=== PATIENT | male | born 1940 | race Two or more races ===

== ENCOUNTER 2018-10-11 10:08 | Inpatient (IN) | payer MEDICARE ==
[2018-10-11] VITALS (28 sets, daily range): BP systolic 96–137; BP diastolic 50–110
[~2018-10-11] VITALS: Ht 172.7 cm; Wt 99.8 kg
[2018-10-11] MEDS ORDERED: SODIUM CHLORIDE 0.9% 1,000 ML IV ONE (10:33)
[2018-10-11] MEDS ORDERED: ONDANSETRON HCL 4MG/2ML INJ IV STA (10:33)
[2018-10-11] MEDS ORDERED: DILTIAZEM HCL 5MG/ML 5ML VIAL IV ONE (11:15)
[2018-10-11] MEDS ORDERED: CALCIUM GLUCONATE 1,000 MG in DEXTROSE 5% WATER 50 ML IV ONE (11:15)
[2018-10-11 14:12] LABS: CHLORIDE 115 mEq/L (98-107)
[2018-10-11] MEDS ORDERED: DILTIAZEM HCL 5MG/ML 5ML VIAL IV PRN (14:15)
[2018-10-11] MEDS ORDERED: POTASSIUM CHLORIDE 20MEQ TABLET SR PO ONE (14:30)
[2018-10-11] MEDS ORDERED: KCL 20MEQ/100ML PREMIX 100 ML IV ONE (14:30)
[2018-10-11] MEDS ORDERED: MAGNESIUM 2 G PREMIX 50 ML IV ONE (14:30)
[2018-10-11] MEDS ORDERED: DIGOXIN 500MCG/2ML AMP IV ONE (14:30)
[2018-10-11 15:28] LABS: MEAN CORPUSCULAR HEMOGLOBIN 29.8 pg (28.0-32.0); MEAN CORPUSCULAR VOLUME 85.6 fL (80.0-94.0); MEAN PLATELET VOLUME 7.1 fl (7.4-10.4); PLATELET 405 x1000/uL (130-400); RED BLOOD CELL COUNT 2.68 mill/uL (4.7-6.1); RED CELL DISTRIBUTION WIDTH 14.4 % (11.6-14.6)
[2018-10-11 15:59] LABS: PLATELET ESTIMATE INCREASED
[2018-10-11] MEDS ORDERED: VISCOUS LIDOCAINE 2% 15 ML UDC MM PRN (16:30)
[2018-10-11] MEDS ORDERED: ONDANSETRON HCL 4MG/2ML INJ IV PRN (16:30)
[2018-10-11] MEDS: SODIUM CHLORIDE 0.9% 1,000 ML IV SCH ×2 (16:45→23:15)
[2018-10-11 17:34] LABS: PROTHROMBIN TIME > 100.0 sec (9.1-11.1)
[2018-10-11 17:39] LABS: INR > 10.0; PARTIAL THROMBOPLASTIN TIME > 200.0 sec (23.4-31.0)
[2018-10-11] MEDS: DILTIAZEM HCL 30MG TABLET PO SCH (21:38)
[2018-10-11] MEDS ORDERED: MAGNESIUM 1 G PREMIX 100 ML IV NR (23:00)
[2018-10-12] VITALS (38 sets, daily range): BP systolic 88–159; BP diastolic 41–107
[2018-10-12] MEDS: MORPHINE SULFATE 4 MG/ML CPJ (NOT FOR IM USE) IV PRN ×5 (02:50→23:20)
[2018-10-12] MEDS: SODIUM CHLORIDE 0.9% 1,000 ML IV SCH ×4 (05:50→19:10)
[2018-10-12 05:56] LABS: HEMOGLOBIN. 7.1 g/dL (14.0-18.0); MEAN CORPUSCULAR VOLUME 85.6 fL (80.0-94.0); PLATELET 287 x1000/uL (130-400); RED BLOOD CELL COUNT 2.35 mill/uL (4.7-6.1); RED CELL DISTRIBUTION WIDTH 14.1 % (11.6-14.6)
[2018-10-12 06:01] LABS: INR 3.5; PROTHROMBIN TIME 34.3 sec (9.1-11.1)
[2018-10-12 06:17] LABS: HEMATOCRIT. 20.2 % (42.0-52.0)
[2018-10-12] MEDS: DILTIAZEM HCL 30MG TABLET PO SCH ×3 (06:39→21:50)
[2018-10-12 08:19] LABS: PLATELET ESTIMATE NORMAL
[2018-10-12] MEDS ORDERED: POTASSIUM CHLORIDE INJ 40 MEQ in DEXT 5% WATER 250 ML IV SCH (08:30)
[2018-10-12] MEDS: PANTOPRAZOLE SODIUM 40 MG/VIAL IV SCH (08:45)
[2018-10-12] MEDS: HYDROCODONE/ACETAMINOPHEN 5/325MG TABLET PO PRN ×3 (10:13→21:02)
[2018-10-12] MEDS ORDERED: VANCOMYCIN 1500MG in DEXTROSE 5% WATER 250ML IV SCH (15:00)
[2018-10-13] VITALS (14 sets, daily range): BP systolic 100–131; BP diastolic 50–88
[2018-10-13] MEDS: SODIUM CHLORIDE 0.9% 1,000 ML IV SCH ×3 (01:50→20:15)
[2018-10-13] MEDS: DILTIAZEM HCL 30MG TABLET PO SCH ×3 (05:16→22:00)
[2018-10-13 05:53] LABS: PROTHROMBIN TIME 62.8 sec (9.1-11.1)
[2018-10-13 06:10] LABS: HEMATOCRIT. 21.7 % (42.0-52.0); HEMOGLOBIN. 7.5 g/dL (14.0-18.0); MEAN CORPUSCULAR HEMOGLOBIN 29.5 pg (28.0-32.0); MEAN CORPUSCULAR VOLUME 85.5 fL (80.0-94.0); MEAN PLATELET VOLUME 6.8 fl (7.4-10.4); PLATELET 274 x1000/uL (130-400); RED BLOOD CELL COUNT 2.54 mill/uL (4.7-6.1)
[2018-10-13 06:30] LABS: INR 6.5
[2018-10-13 06:45] LABS: CHLORIDE 98 mEq/L (98-107)
[2018-10-13] MEDS: PANTOPRAZOLE SODIUM 40 MG/VIAL IV SCH (08:33)
[2018-10-13] MEDS ORDERED: VANCOMYCIN 1250MG in DEXTROSE 5% WATER 250ML IV SCH (09:00)
[2018-10-13] MEDS: MORPHINE SULFATE 4 MG/ML CPJ (NOT FOR IM USE) IV PRN ×2 (09:21→20:06)
[2018-10-13 09:25] LABS: NUCLEATED RED BLOOD CELLS 1 /100 WBC
[2018-10-13 09:26] LABS: PLATELET ESTIMATE NORMAL
[2018-10-13] MEDS ORDERED: POTASSIUM CHLORIDE 20MEQ TABLET SR PO SCH (11:00)
[2018-10-13] MEDS: VANCOMYCIN 1500MG in DEXTROSE 5% WATER 250ML IV SCH (11:18)
[2018-10-13] MEDS ORDERED: MAGNESIUM 2 G PREMIX 50 ML IV SCH (12:00)
[2018-10-13 12:49] LABS: PROTHROMBIN TIME 73.5 sec (9.1-11.1)
[2018-10-13 12:59] LABS: INR 7.6
[2018-10-13] MEDS ORDERED: PHYTONADIONE 10MG/ML AMP SUBCUT NR (14:15)
[2018-10-13] MEDS ORDERED: LIDOCAINE HCL 20 MG/ML 100ML BOTTLE MM PRN (18:30)
[2018-10-13] MEDS: HYDROCODONE/ACETAMINOPHEN 5/325MG TABLET PO PRN (21:09)
[2018-10-14] VITALS (21 sets, daily range): BP systolic 85–114; BP diastolic 35–74
[2018-10-14] MEDS: VANCOMYCIN 1500MG in DEXTROSE 5% WATER 250ML IV SCH ×2 (04:50→23:04)
[2018-10-14] MEDS: DILTIAZEM HCL 30MG TABLET PO SCH ×3 (06:00→21:04)
[2018-10-14 06:34] LABS: MEAN CORPUSCULAR HEMOGLOBIN 30.1 pg (28.0-32.0); MEAN CORPUSCULAR VOLUME 86.5 fL (80.0-94.0); MEAN PLATELET VOLUME 6.7 fl (7.4-10.4); PLATELET 233 x1000/uL (130-400); RED BLOOD CELL COUNT 1.95 mill/uL (4.7-6.1); RED CELL DISTRIBUTION WIDTH 14.1 % (11.6-14.6)
[2018-10-14 06:43] LABS: CHLORIDE 97 mEq/L (98-107)
[2018-10-14 07:01] LABS: INR 1.7; PARTIAL THROMBOPLASTIN TIME 42.7 sec (23.4-31.0); PROTHROMBIN TIME 16.8 sec (9.1-11.1)
[2018-10-14 07:26] LABS: HEMATOCRIT. 16.9 % (42.0-52.0); HEMOGLOBIN. 5.9 g/dL (14.0-18.0)
[2018-10-14] MEDS: PANTOPRAZOLE SODIUM 40 MG/VIAL IV SCH (08:32)
[2018-10-14] MEDS ORDERED: POTASSIUM CHLORIDE INJ 40 MEQ in DEXT 5% WATER 250 ML IV SCH (08:45)
[2018-10-14] MEDS ORDERED: MAGNESIUM SULFATE 1GM/2ML VIAL IV ONE (08:45)
[2018-10-14] MEDS: HYDROCODONE/ACETAMINOPHEN 5/325MG TABLET PO PRN (08:50)
[2018-10-14] MEDS ORDERED: MAGNESIUM 2 G PREMIX 50 ML IV ONE (10:00)
[2018-10-14 12:30] LABS: PLATELET ESTIMATE NORMAL
[2018-10-14] MEDS: SODIUM CHLORIDE 0.9% 1,000 ML IV SCH ×2 (12:54→19:52)
[2018-10-14 15:08] LABS: CHLORIDE 96 mEq/L (98-107)
[2018-10-15] VITALS (15 sets, daily range): BP systolic 91–125; BP diastolic 49–84
[2018-10-15] MEDS: DILTIAZEM HCL 30MG TABLET PO SCH ×3 (06:00→22:00)
[2018-10-15 06:35] LABS: INR 1.1; PROTHROMBIN TIME 11.2 sec (9.1-11.1)
[2018-10-15 08:01] LABS: HEMATOCRIT 21.5 % (42.0-52.0); HEMOGLOBIN 7.6 g/dL (14.0-18.0); MEAN CORPUSCULAR HEMOGLOBIN 30.2 pg (28.0-32.0); MEAN CORPUSCULAR VOLUME 85.9 fL (80.0-94.0); PLATELET 197 x1000/uL (130-400); RED BLOOD CELL COUNT 2.51 mill/uL (4.7-6.1); RED CELL DISTRIBUTION WIDTH 14.5 % (11.6-14.6)
[2018-10-15 08:06] LABS: CHLORIDE 95 mEq/L (98-107)
[2018-10-15] MEDS: PANTOPRAZOLE SODIUM 40 MG/VIAL IV SCH (08:48)
[2018-10-15] MEDS ORDERED: POTASSIUM CHLORIDE INJ 40 MEQ in DEXT 5% WATER 500 ML IV SCH (10:30)
[2018-10-15] MEDS: SODIUM CHLORIDE 0.9% 1,000 ML IV SCH (11:20)
[2018-10-15] MEDS: VANCOMYCIN 1500MG in DEXTROSE 5% WATER 250ML IV SCH (17:04)
[2018-10-16] VITALS (12 sets, daily range): BP systolic 91–112; BP diastolic 50–75
[2018-10-16] MEDS: DILTIAZEM HCL 30MG TABLET PO SCH ×3 (06:00→21:10)
[2018-10-16 06:57] LABS: INR 1.1; PARTIAL THROMBOPLASTIN TIME 29.4 sec (23.4-31.0); PROTHROMBIN TIME 10.8 sec (9.1-11.1)
[2018-10-16 07:00] LABS: CHLORIDE 94 mEq/L (98-107)
[2018-10-16 07:19] LABS: HEMATOCRIT. 22.3 % (42.0-52.0); HEMOGLOBIN. 7.8 g/dL (14.0-18.0); MEAN CORPUSCULAR HEMOGLOBIN 30.2 pg (28.0-32.0); MEAN PLATELET VOLUME 6.6 fl (7.4-10.4); PLATELET 226 x1000/uL (130-400); RED BLOOD CELL COUNT 2.59 mill/uL (4.7-6.1); RED CELL DISTRIBUTION WIDTH 13.8 % (11.6-14.6)
[2018-10-16] MEDS: PANTOPRAZOLE SODIUM 40 MG/VIAL IV SCH (09:00)
[2018-10-16] MEDS: POTASSIUM CHLORIDE 10MEQ TABLET SR PO SCH (09:01)
[2018-10-16] MEDS ORDERED: POTASSIUM CHLORIDE INJ 60 MEQ in DEXT 5% WATER 500 ML IV SCH (12:00)
[2018-10-16 12:04] LABS: PLATELET ESTIMATE NORMAL
[2018-10-16] MEDS: DEXT 5%/0.45% NACL KCL 20MEQ/L 1,000 ML IV SCH (12:19)
[2018-10-16] MEDS ORDERED: TEMAZEPAM 15MG CAPSULE PO PRN (21:00)
[2018-10-17] VITALS (12 sets, daily range): BP systolic 92–120; BP diastolic 48–88
[2018-10-17] MEDS: DEXT 5%/0.45% NACL KCL 20MEQ/L 1,000 ML IV SCH ×2 (01:33→14:10)
[2018-10-17 05:47] LABS: HEMATOCRIT. 22.7 % (42.0-52.0); HEMOGLOBIN. 7.8 g/dL (14.0-18.0); MEAN CORPUSCULAR HEMOGLOBIN 30.1 pg (28.0-32.0); MEAN CORPUSCULAR VOLUME 87.1 fL (80.0-94.0); MEAN PLATELET VOLUME 6.6 fl (7.4-10.4); PLATELET 227 x1000/uL (130-400)
[2018-10-17] MEDS: DILTIAZEM HCL 30MG TABLET PO SCH ×3 (06:00→22:00)
[2018-10-17 06:50] LABS: CHLORIDE 95 mEq/L (98-107)
[2018-10-17] MEDS: POTASSIUM CHLORIDE 10MEQ TABLET SR PO SCH (09:34)
[2018-10-17] MEDS: PANTOPRAZOLE SODIUM 40 MG/VIAL IV SCH (09:34)
[2018-10-17 11:45] LABS: PLATELET ESTIMATE NORMAL
[2018-10-17 13:58] LABS: INR 1.1; PARTIAL THROMBOPLASTIN TIME 28.2 sec (23.4-31.0); PROTHROMBIN TIME 11.1 sec (9.1-11.1)
[2018-10-17] MEDS ORDERED: SODIUM CHLORIDE 0.9% 10ML VIAL ONE (14:55)
[2018-10-17] MEDS ORDERED: FENTANYL CITRATE/PF 50MCG/ML 2ML VIAL ONE (16:39)
[2018-10-17] MEDS ORDERED: MIDAZOLAM HCL 5 MG/5 ML VIAL ONE (16:39)
[2018-10-17] MEDS ORDERED: CEFAZOLIN 1000MG PREMIX 50 ML IV ONE (16:39)
[2018-10-17] MEDS ORDERED: MIDAZOLAM HCL 5 MG/5 ML VIAL IV PRN (16:40)
[2018-10-17] MEDS: CEFAZOLIN 1000MG PREMIX 50 ML IV SCH ×2 (16:40→16:45)
[2018-10-18] VITALS (12 sets, daily range): BP systolic 91–107; BP diastolic 51–69
[2018-10-18] MEDS: DEXT 5%/0.45% NACL KCL 20MEQ/L 1,000 ML IV SCH ×2 (03:30→16:50)
[2018-10-18] MEDS: DILTIAZEM HCL 30MG TABLET PO SCH ×3 (06:00→21:49)
[2018-10-18 07:21] LABS: HEMATOCRIT. 23.7 % (42.0-52.0); HEMOGLOBIN. 8.2 g/dL (14.0-18.0); MEAN CORPUSCULAR HEMOGLOBIN 30.3 pg (28.0-32.0); MEAN CORPUSCULAR VOLUME 87.5 fL (80.0-94.0); MEAN PLATELET VOLUME 6.7 fl (7.4-10.4); PLATELET 248 x1000/uL (130-400); RED CELL DISTRIBUTION WIDTH 14.3 % (11.6-14.6)
[2018-10-18 07:37] LABS: CHLORIDE 97 mEq/L (98-107)
[2018-10-18 09:19] LABS: PLATELET ESTIMATE NORMAL
[2018-10-18] MEDS: POTASSIUM CHLORIDE 10MEQ TABLET SR PO SCH (09:50)
[2018-10-18] MEDS: PANTOPRAZOLE SODIUM 40 MG/VIAL IV SCH (09:50)
[2018-10-18] MEDS: ASPIRIN 81MG EC TABLET PO SCH (14:45)
[2018-10-18] MEDS ORDERED: APIXABAN 5 MG TABLET PO SCH (17:00)
[2018-10-18] MEDS: DIGOXIN 500MCG/2ML AMP IV SCH (17:26)
[2018-10-19] VITALS (12 sets, daily range): BP systolic 90–122; BP diastolic 52–80
[2018-10-19] MEDS: DILTIAZEM HCL 30MG TABLET PO SCH ×3 (06:34→22:00)
[2018-10-19] MEDS: DEXT 5%/0.45% NACL KCL 20MEQ/L 1,000 ML IV SCH ×2 (06:34→17:39)
[2018-10-19 06:55] LABS: HEMATOCRIT. 23.2 % (42.0-52.0); MEAN CORPUSCULAR HEMOGLOBIN 30.3 pg (28.0-32.0); MEAN CORPUSCULAR VOLUME 87.5 fL (80.0-94.0); MEAN PLATELET VOLUME 6.6 fl (7.4-10.4); PLATELET 234 x1000/uL (130-400); RED BLOOD CELL COUNT 2.65 mill/uL (4.7-6.1); RED CELL DISTRIBUTION WIDTH 14.1 % (11.6-14.6)
[2018-10-19 07:10] LABS: CHLORIDE 99 mEq/L (98-107)
[2018-10-19] MEDS ORDERED: MAGNESIUM 4 G PREMIX 100 ML IV SCH (08:00)
[2018-10-19 09:00] LABS: PLATELET ESTIMATE NORMAL
[2018-10-19] MEDS: PANTOPRAZOLE SODIUM 40 MG/VIAL IV SCH (09:37)
[2018-10-19] MEDS: ASPIRIN 81MG EC TABLET PO SCH (09:38)
[2018-10-19] MEDS: POTASSIUM CHLORIDE 10MEQ TABLET SR PO SCH (13:43)
[2018-10-19] MEDS ORDERED: MAGNESIUM HYDROXIDE 400MG/5ML 30ML UDC PEG PRN (13:45)
[2018-10-19] MEDS: DOCUSATE SODIUM SUGAR FREE 100MG/10ML UDC NG SCH (17:39)
[2018-10-19] MEDS: DIGOXIN 500MCG/2ML AMP IV SCH (17:39)
[2018-10-20] VITALS (12 sets, daily range): BP systolic 91–125; BP diastolic 47–94
[2018-10-20] MEDS: DILTIAZEM HCL 30MG TABLET PO SCH ×3 (06:00→21:54)
[2018-10-20 07:07] LABS: HEMATOCRIT. 23.3 % (42.0-52.0); HEMOGLOBIN. 8.1 g/dL (14.0-18.0); MEAN CORPUSCULAR HEMOGLOBIN 30.4 pg (28.0-32.0); MEAN CORPUSCULAR VOLUME 87.9 fL (80.0-94.0); MEAN PLATELET VOLUME 6.7 fl (7.4-10.4); PLATELET 263 x1000/uL (130-400); RED BLOOD CELL COUNT 2.65 mill/uL (4.7-6.1); RED CELL DISTRIBUTION WIDTH 14.4 % (11.6-14.6)
[2018-10-20 07:47] LABS: CHLORIDE 100 mEq/L (98-107)
[2018-10-20 08:06] LABS: DIGOXIN 0.7 ng/mL (0.9-2.0)
[2018-10-20] MEDS: POTASSIUM CHLORIDE 10MEQ TABLET SR PO SCH (09:03)
[2018-10-20] MEDS: ASPIRIN 81MG EC TABLET PO SCH (09:03)
[2018-10-20] MEDS: DEXT 5%/0.45% NACL KCL 20MEQ/L 1,000 ML IV SCH ×2 (09:04→22:27)
[2018-10-20] MEDS: PANTOPRAZOLE SODIUM 40 MG/VIAL IV SCH (09:04)
[2018-10-20] MEDS: DOCUSATE SODIUM SUGAR FREE 100MG/10ML UDC NG SCH ×2 (09:04→17:00)
[2018-10-20 10:18] LABS: PLATELET ESTIMATE NORMAL
[2018-10-20] MEDS: DIGOXIN 500MCG/2ML AMP IV SCH (17:40)
[2018-10-21] VITALS (12 sets, daily range): BP systolic 104–163; BP diastolic 55–70
[2018-10-21] MEDS: DILTIAZEM HCL 30MG TABLET PO SCH ×3 (06:31→22:05)
[2018-10-21] MEDS: DOCUSATE SODIUM SUGAR FREE 100MG/10ML UDC NG SCH ×2 (09:00→17:00)
[2018-10-21] MEDS: ASPIRIN 81MG EC TABLET PO SCH (09:23)
[2018-10-21] MEDS: PANTOPRAZOLE SODIUM 40 MG/VIAL IV SCH (09:23)
[2018-10-21] MEDS: POTASSIUM CHLORIDE 10MEQ TABLET SR PO SCH (09:23)
[2018-10-21] MEDS: DEXT 5%/0.45% NACL KCL 20MEQ/L 1,000 ML IV SCH (11:15)
[2018-10-21] MEDS: DIGOXIN 500MCG/2ML AMP IV SCH (18:20)
[2018-10-22] VITALS (12 sets, daily range): BP systolic 89–136; BP diastolic 34–73
[2018-10-22] MEDS: DEXT 5%/0.45% NACL KCL 20MEQ/L 1,000 ML IV SCH ×2 (00:42→14:52)
[2018-10-22] MEDS: DILTIAZEM HCL 30MG TABLET PO SCH ×3 (05:14→22:05)
[2018-10-22 07:49] LABS: HEMATOCRIT. 24.9 % (42.0-52.0); HEMOGLOBIN. 8.4 g/dL (14.0-18.0); MEAN CORPUSCULAR HEMOGLOBIN 30.1 pg (28.0-32.0); MEAN CORPUSCULAR VOLUME 89.1 fL (80.0-94.0); MEAN PLATELET VOLUME 6.9 fl (7.4-10.4); PLATELET 295 x1000/uL (130-400); RED BLOOD CELL COUNT 2.79 mill/uL (4.7-6.1); RED CELL DISTRIBUTION WIDTH 14.5 % (11.6-14.6)
[2018-10-22 07:58] LABS: CHLORIDE 102 mEq/L (98-107)
[2018-10-22] MEDS: DOCUSATE SODIUM SUGAR FREE 100MG/10ML UDC NG SCH ×2 (08:52→17:00)
[2018-10-22] MEDS: ASPIRIN 81MG EC TABLET PO SCH (08:54)
[2018-10-22] MEDS: POTASSIUM CHLORIDE 10MEQ TABLET SR PO SCH (08:54)
[2018-10-22] MEDS: PANTOPRAZOLE SODIUM 40 MG/VIAL IV SCH (09:12)
[2018-10-22] MEDS ORDERED: MAGNESIUM 2 G PREMIX 50 ML IV NR (14:00)
[2018-10-22] MEDS: ENOXAPARIN 100MG/ML SYR SUBCUT SCH ×2 (15:35→22:05)
[2018-10-22] MEDS: DIGOXIN 500MCG/2ML AMP IV SCH (18:13)
[2018-10-23] VITALS (14 sets, daily range): BP systolic 95–152; BP diastolic 53–80
[2018-10-23 03:32] LABS: PLATELET ESTIMATE NORMAL
[2018-10-23] MEDS: DEXT 5%/0.45% NACL KCL 20MEQ/L 1,000 ML IV SCH ×2 (04:54→18:14)
[2018-10-23] MEDS: DILTIAZEM HCL 30MG TABLET PO SCH ×3 (05:02→21:16)
[2018-10-23] MEDS: PANTOPRAZOLE SODIUM 40 MG/VIAL IV SCH (08:23)
[2018-10-23] MEDS: ASPIRIN 81MG EC TABLET PO SCH (08:23)
[2018-10-23] MEDS: POTASSIUM CHLORIDE 10MEQ TABLET SR PO SCH (08:23)
[2018-10-23] MEDS: DOCUSATE SODIUM SUGAR FREE 100MG/10ML UDC NG SCH ×2 (08:25→17:00)
[2018-10-23] MEDS: ENOXAPARIN 100MG/ML SYR SUBCUT SCH ×2 (08:25→21:15)
[2018-10-23] MEDS: DIGOXIN 500MCG/2ML AMP IV SCH (18:15)
[2018-10-24] VITALS (17 sets, daily range): BP systolic 100–148; BP diastolic 49–81
[2018-10-24] MEDS: DILTIAZEM HCL 30MG TABLET PO SCH ×3 (06:00→21:33)
[2018-10-24] MEDS: DEXT 5%/0.45% NACL KCL 20MEQ/L 1,000 ML IV SCH ×2 (06:22→21:33)
[2018-10-24] MEDS: DOCUSATE SODIUM SUGAR FREE 100MG/10ML UDC NG SCH ×2 (09:00→17:00)
[2018-10-24] MEDS: PANTOPRAZOLE SODIUM 40 MG/VIAL IV SCH (09:12)
[2018-10-24] MEDS: ASPIRIN 81MG EC TABLET PO SCH (09:13)
[2018-10-24] MEDS: POTASSIUM CHLORIDE 10MEQ TABLET SR PO SCH (09:13)
[2018-10-24] MEDS: ENOXAPARIN 100MG/ML SYR SUBCUT SCH ×2 (09:14→21:32)
[2018-10-24 13:24] LABS: HEMATOCRIT. 23.5 % (42.0-52.0); HEMOGLOBIN. 8.1 g/dL (14.0-18.0); MEAN CORPUSCULAR HEMOGLOBIN 31.2 pg (28.0-32.0); MEAN CORPUSCULAR VOLUME 90.6 fL (80.0-94.0); MEAN PLATELET VOLUME 6.6 fl (7.4-10.4); PLATELET 321 x1000/uL (130-400); RED BLOOD CELL COUNT 2.59 mill/uL (4.7-6.1); RED CELL DISTRIBUTION WIDTH 15.8 % (11.6-14.6)
[2018-10-24 14:13] LABS: PLATELET ESTIMATE NORMAL
[2018-10-24] MEDS ORDERED: MAGNESIUM 2 G PREMIX 50 ML IV SCH (16:00)
[2018-10-24] MEDS: DIGOXIN 250MCG TABLET PO SCH (17:32)
[2018-10-25] VITALS (15 sets, daily range): BP systolic 100–143; BP diastolic 44–73
[2018-10-25] MEDS: DILTIAZEM HCL 30MG TABLET PO SCH ×3 (06:08→21:07)
[2018-10-25 07:02] LABS: HEMATOCRIT. 23.2 % (42.0-52.0); HEMOGLOBIN. 7.8 g/dL (14.0-18.0); MEAN CORPUSCULAR HEMOGLOBIN 30.6 pg (28.0-32.0); MEAN CORPUSCULAR VOLUME 90.5 fL (80.0-94.0); PLATELET 346 x1000/uL (130-400); RED BLOOD CELL COUNT 2.56 mill/uL (4.7-6.1); RED CELL DISTRIBUTION WIDTH 16.7 % (11.6-14.6)
[2018-10-25 07:27] LABS: CHLORIDE 102 mEq/L (98-107)
[2018-10-25 07:49] LABS: DIGOXIN 1.2 ng/mL (0.9-2.0)
[2018-10-25] MEDS: ENOXAPARIN 100MG/ML SYR SUBCUT SCH (09:00)
[2018-10-25] MEDS: PANTOPRAZOLE SODIUM 40 MG/VIAL IV SCH (09:26)
[2018-10-25] MEDS: ASPIRIN 81MG EC TABLET PO SCH (09:26)
[2018-10-25] MEDS: POTASSIUM CHLORIDE 10MEQ TABLET SR PO SCH (09:27)
[2018-10-25] MEDS ORDERED: ACETAMINOPHEN 650MG/20.3ML UDC GT PRN (15:30)
[2018-10-25] MEDS: DIGOXIN 250MCG TABLET PO SCH (18:06)
[2018-10-25] MEDS: DEXT 5%/0.45% NACL KCL 20MEQ/L 1,000 ML IV SCH ×2 (18:08→21:35)
[2018-10-25 18:26] LABS: PLATELET ESTIMATE NORMAL
[2018-10-26] VITALS (9 sets, daily range): BP systolic 96–142; BP diastolic 52–70
[2018-10-26] MEDS: DILTIAZEM HCL 30MG TABLET PO SCH ×3 (05:13→21:55)
[2018-10-26 06:48] LABS: HEMOGLOBIN. 8.3 g/dL (14.0-18.0); MEAN CORPUSCULAR HEMOGLOBIN 31.7 pg (28.0-32.0); MEAN CORPUSCULAR VOLUME 92.4 fL (80.0-94.0); MEAN PLATELET VOLUME 7.1 fl (7.4-10.4); PLATELET 340 x1000/uL (130-400); RED CELL DISTRIBUTION WIDTH 17.7 % (11.6-14.6)
[2018-10-26 07:46] LABS: CHLORIDE 102 mEq/L (98-107)
[2018-10-26] MEDS: ASPIRIN 81MG EC TABLET PO SCH (09:03)
[2018-10-26] MEDS: POTASSIUM CHLORIDE 10MEQ TABLET SR PO SCH (09:03)
[2018-10-26] MEDS: PANTOPRAZOLE SODIUM 40 MG/VIAL IV SCH (09:03)
[2018-10-26] MEDS: DEXT 5%/0.45% NACL KCL 20MEQ/L 1,000 ML IV SCH (09:39)
[2018-10-26 11:01] LABS: PLATELET ESTIMATE NORMAL
[2018-10-26] MEDS: ENOXAPARIN 100MG/ML SYR SUBCUT SCH ×2 (14:23→21:56)
[2018-10-26] MEDS: DIGOXIN 250MCG TABLET PO SCH (18:00)
[2018-10-27] MEDS: DEXT 5%/0.45% NACL KCL 20MEQ/L 1,000 ML IV SCH ×2 (02:30→18:40)
[2018-10-27] MEDS: DILTIAZEM HCL 30MG TABLET PO SCH ×3 (05:32→21:54)
[2018-10-27 08:01] VITALS: BP 99/48
[2018-10-27] MEDS: PANTOPRAZOLE SODIUM 40 MG/VIAL IV SCH (09:00)
[2018-10-27] MEDS: POTASSIUM CHLORIDE 10MEQ TABLET SR PO SCH (09:00)
[2018-10-27] MEDS: ASPIRIN 81MG EC TABLET PO SCH (09:00)
[2018-10-27] MEDS: ENOXAPARIN 100MG/ML SYR SUBCUT SCH ×2 (09:00→21:55)
[2018-10-27 16:04] LABS: HEMATOCRIT 25.1 % (42.0-52.0); HEMOGLOBIN 8.4 g/dL (14.0-18.0)
[2018-10-27] MEDS: DIGOXIN 250MCG TABLET PO SCH (18:40)
[2018-10-27 20:00] VITALS: BP 143/74
[2018-10-28] VITALS: BP 123/66
[2018-10-28 04:00] VITALS: BP 99/66
[2018-10-28] MEDS: DEXT 5%/0.45% NACL KCL 20MEQ/L 1,000 ML IV SCH ×2 (04:18→08:27)
[2018-10-28] MEDS: DILTIAZEM HCL 30MG TABLET PO SCH ×3 (05:12→22:41)
[2018-10-28 08:09] VITALS: BP 113/81
[2018-10-28] MEDS: ASPIRIN 81MG EC TABLET PO SCH (08:23)
[2018-10-28] MEDS: ENOXAPARIN 100MG/ML SYR SUBCUT SCH ×2 (08:23→21:16)
[2018-10-28] MEDS: PANTOPRAZOLE SODIUM 40 MG/VIAL IV SCH (08:23)
[2018-10-28] MEDS: POTASSIUM CHLORIDE 10MEQ TABLET SR PO SCH (08:23)
[2018-10-28 08:31] LABS: HEMATOCRIT. 22.9 % (42.0-52.0); HEMOGLOBIN. 7.9 g/dL (14.0-18.0); MEAN CORPUSCULAR HEMOGLOBIN 32.1 pg (28.0-32.0); MEAN CORPUSCULAR VOLUME 93.6 fL (80.0-94.0); PLATELET 311 x1000/uL (130-400); RED BLOOD CELL COUNT 2.45 mill/uL (4.7-6.1)
[2018-10-28 08:47] LABS: CHLORIDE 100 mEq/L (98-107)
[2018-10-28 09:16] LABS: DIGOXIN 1.2 ng/mL (0.9-2.0)
[2018-10-28 11:49] VITALS: BP 115/53
[2018-10-28 15:46] VITALS: BP 109/62
[2018-10-28] MEDS ORDERED: MAGNESIUM 1 G PREMIX 100 ML IV SCH (16:00)
[2018-10-28] MEDS: DIGOXIN 250MCG TABLET PO SCH (17:25)
[2018-10-28 20:00] VITALS: BP 108/61
[2018-10-29] VITALS: BP 117/59
[2018-10-29] MEDS: DEXT 5%/0.45% NACL KCL 20MEQ/L 1,000 ML IV SCH (00:23)
[2018-10-29] MEDS: DILTIAZEM HCL 30MG TABLET PO SCH (05:34)
[2018-10-29 08:00] VITALS: BP 112/68
[2018-10-29] MEDS: POTASSIUM CHLORIDE 10MEQ TABLET SR PO SCH (08:20)
[2018-10-29] MEDS: ASPIRIN 81MG EC TABLET PO SCH (08:20)
[2018-10-29] MEDS: ENOXAPARIN 100MG/ML SYR SUBCUT SCH (08:20)
[2018-10-29] MEDS: PANTOPRAZOLE SODIUM 40 MG/VIAL IV SCH (08:20)
[2018-10-29 10:56] VITALS: BP 112/68
[2018-10-29 12:11] LABS: PLATELET ESTIMATE NORMAL
== END 2018-10-29 13:05 | disposition home or self-care (01) | DRG 146 ==
LOC: ER 10:44 → EDBEDREQ 13:20 → EDBEDREQSVC 13:20 → EDBEDREQ 14:28 → ENRESERV 15:21 → MICUSO 16:23 → 5EST 10-12 21:50
PROVIDERS: ADMIT Internal Medicine; ATTEND Internal Medicine
PROC: 02HV33Z Insertion of Infusion Device into Superior Vena Cava, Percutaneous Approach (ICD-10-PCS; principal; 2018-10-11)
PROC: B548ZZA Ultrasonography of Superior Vena Cava, Guidance (ICD-10-PCS; 2018-10-11)
PROC: 30233K1 Transfusion of Nonautologous Frozen Plasma into Peripheral Vein, Percutaneous Approach (ICD-10-PCS; 2018-10-11)
PROC: 30233N1 Transfusion of Nonautologous Red Blood Cells into Peripheral Vein, Percutaneous Approach (ICD-10-PCS; 2018-10-11)
PROC: 0DH63UZ Insertion of Feeding Device into Stomach, Percutaneous Approach (ICD-10-PCS; 2018-10-17)
DX: C14.0 Malignant neoplasm of pharynx, unspecified (principal); R57.1 Hypovolemic shock; I48.92 Unspecified atrial flutter; R78.81 Bacteremia; D68.9 Coagulation defect, unspecified; E87.6 Hypokalemia; E83.42 Hypomagnesemia; D64.9 Anemia, unspecified; I48.91 Unspecified atrial fibrillation; R13.10 Dysphagia, unspecified; I10 Essential (primary) hypertension; R13.12 Dysphagia, oropharyngeal phase; R62.7 Adult failure to thrive; Z96.653 Presence of artificial knee joint, bilateral; K59.00 Constipation, unspecified; K64.9 Unspecified hemorrhoids; I95.9 Hypotension, unspecified; T45.1X5A Adverse effect of antineoplastic and immunosuppressive drugs, initial encounter; J02.9 Acute pharyngitis, unspecified; K20.8 Other esophagitis; T45.515A Adverse effect of anticoagulants, initial encounter; Z79.01 Long term (current) use of anticoagulants; Z82.49 Family history of ischemic heart disease and other diseases of the circulatory system; Z86.718 Personal history of other venous thrombosis and embolism; Z86.73 Personal history of transient ischemic attack (TIA), and cerebral infarction without residual deficits; Z87.891 Personal history of nicotine dependence; Z92.3 Personal history of irradiation; Z68.33 Body mass index [BMI] 33.0-33.9, adult; Z90.49 Acquired absence of other specified parts of digestive tract; Y92.89 Other specified places as the place of occurrence of the external cause
CPT/HCPCS: 36415; 36569; 71045; 76937; 80048; 80162; 80202; 82728; 83540; 83550; 83605; 83615; 83735; 83880; 84145; 84443; 84484; 84550; 85014; 85018; 85027; 85044; 86850; 86900; 86920; 86927; 87077; 87186; 92610; 93005; 93306; 93970; 93971; 96374; 96375; 97116; 97162; 97166; 97530; 97535; 99291; C1725; C9113; J0610; J0690; J1160; J1650; J2250; J2270; J2405; J3010; J3370; J3430; J3475; J3480; J3490; J7030; J7040; J7050; J7060; P9016; P9017